=== PATIENT | male | born 1965 | race Caucasian/White ===

== ENCOUNTER 2022-10-27 08:34 | Emergency (ER) | payer MEDICARE, OTHER ==
[~2022-10-27] VITALS: Ht 185.4 cm; Wt 86.2 kg
[2022-10-27] MEDS ORDERED: TDAP [DIPH/PERTUSSIS/TET] 0.5 ML VIAL IM ONE ×2 (09:00→09:01)
[2022-10-27] MEDS ORDERED: LIDOCAINE 2% 20 ML MDV ONE (09:03)
--- NOTE | 2022-10-27 09:09 | NUR ---
[facility] UNIT 15A21 AT BEDSIDE.
--- NOTE | 2022-10-27 10:03 | NUR ---
CALLED [facility] FOR TRANSPORT ETA 60 MINS PER ESTEPHANIA.
--- NOTE | 2022-10-27 10:20 | NUR ---
PER ESTEPHANIA OF [facility], TRANSPORT WILL ARRIVE AT 1200 INSTE[address].
[2022-10-27 11:31] VITALS: BP 122/72
== END 2022-10-27 11:32 ==
LOC: ER 08:59
DX: S01.81XA Laceration without foreign body of other part of head, initial encounter (principal); Y04.0XXA Assault by unarmed brawl or fight, initial encounter; Y93.89 Activity, other specified; Y92.89 Other specified places as the place of occurrence of the external cause; Y99.8 Other external cause status
CPT/HCPCS: 99283; 12014; 90471; 90715; A6403; J3490